=== PATIENT | female | born 1935 | race Caucasian/White ===

== ENCOUNTER 2023-12-16 12:11 | Emergency (ER) | payer OTHER ==
[~2023-12-16] VITALS: Ht 152.4 cm; Wt 68.0 kg
[2023-12-16 12:27] VITALS: BP 150/70; O2SAT 99
[2023-12-16] MEDS ORDERED: XANAX1 MG PO (12:28)
[2023-12-16] MEDS ORDERED: POVIDONE-IODINE 118 ML BOTT TOP ONE (12:54)
[2023-12-16] MEDS ORDERED: HYDROGEN PEROXIDE 473 ML BOTTLE TOP ONE (12:54)
[2023-12-16] MEDS ORDERED: TETANUS & DIPHTHERIA TOX,ADULT 0.5 ML VIAL IM ONE (13:00)
[2023-12-16] MEDS ORDERED: CEFTRIAXONE SODIUM 1,000 MG VIAL IV ONE (13:00)
[2023-12-16] MEDS ORDERED: LIDOCAINE HCL 1% 10ML VIAL ONE ×2 (13:03→13:14)
[2023-12-16] MEDS ORDERED: CEFTRIAXONE SODIUM 1,000 MG VIAL ONE (13:13)
[2023-12-16] MEDS ORDERED: TETANUS DIPHTHERIA TOX. ADSOR 5 ML VIAL IM ONE (13:14)
== END 2023-12-16 14:56 | disposition home or self-care (01) ==
LOC: ER 12:13
DX: S81.822A Laceration with foreign body, left lower leg, initial encounter (principal); W45.0XXA Nail entering through skin, initial encounter; Y93.89 Activity, other specified; Y92.59 Other trade areas as the place of occurrence of the external cause